=== PATIENT | female | born 1940 ===

== ENCOUNTER 2020-10-03 04:39 | Inpatient (IN) ==
[2020-10-03] MEDS ORDERED: Ondansetron 4 mg VIAL 2 MG/ML 2 ml VIAL IV ONE ×2 (05:39→10:25)
[2020-10-03] MEDS ORDERED: NS 0.9% 1000 ml BAG 1,000 ML IV ONE (05:39)
[2020-10-03 06:00] LABS: Hematocrit 37 % (35-47); Hemoglobin 12.9 g/dL (12.0-16.0); Mean Corpuscular HGB Conc 34 g/dL (31-36); Mean Corpuscular Hemoglobin 32 pg (27-31); Mean Corpuscular Volume 92 fL (80-97); Mean Platelet Volume 8.9 fL (7.4-10.4); Platelet Count 236 10^3/uL (150-450); Red Blood Count 4.07 10^6 /uL (3.70-4.87); Red Cell Distribution Width 15 % (10-15); White Blood Count 7.8 10^3/uL (3.5-10.8)
[2020-10-03 06:16] LABS: Albumin 3.6 g/dL (3.2-5.2); Albumin/Globulin Ratio 1.1 (1-3); C Reactive Protein 124.46 mg/L (<8.01); Calcium 9.4 mg/dL (8.6-10.3); EGFR African American 125.7 (>60); EGFR Non-African American 103.9 (>60); Globulin 3.2 g/dL (2-4); Potassium 3.7 mmol/L (3.5-5.0); Total Bilirubin 1.1 mg/dL (0.2-1.0); Total Protein 6.8 g/dL (6.4-8.9); Troponin I 0.01 ng/mL (<0.03)
[2020-10-03 07:15] LABS: ABS Basophils 0.1 10^3/ul (0-0.2); ABS Lymphocytes 0.4 10^3/ul (1.0-4.8); ABS Neutrophils 7.3 10^3/ul (1.5-7.7); Eosinophil % 0.2 %; Lymphocyte % 5.5 %
[2020-10-03] MEDS ORDERED: Iohexol 300 (CONTRAST) 10 ML SDV IV ONE (07:48)
[2020-10-03] MEDS ORDERED: Morphine 4 MG/ML VIAL (1 ml) IV ONE (09:12)
[2020-10-03] MEDS ORDERED: Neostigmine Methylsulfate 3 MG/3 ML SYRINGE IV ONE (11:33)
[2020-10-03] MEDS ORDERED: Atropine 1 MG/ML INJ 1 ML VIAL IV PUSH PRN (11:33)
[2020-10-03 13:03] LABS: Urine Appearance Clear; Urine Bilirubin Negative (Negative); Urine Blood Negative (Negative); Urine Color Amber; Urine Glucose Negative (Negative); Urine Ketones Trace (Negative); Urine Nitrite Negative (Negative); Urine Protein Negative (Negative); Urine Urobilinogen Positive (Negative)
[2020-10-03] MEDS ORDERED: Atropine 0.1 MG/ML 10 ml SYR (1 mg) IV PUSH PRN (13:32)
[2020-10-03] MEDS: Heparin 5000 UNITS/ML 1 mL VIAL SUBCUT SCH ×2 (13:38→22:04)
[2020-10-03 13:55] LABS: T4, Total 9.31 mcg/dL (6.09-12.23)
[2020-10-03] MEDS ORDERED: Metoclopramide 5 MG/ML VIAL (10 mg) IV PRN (13:55)
[2020-10-03 13:59] LABS: Urine Specific Gravity > 1.060 (1.002-1.030)
[2020-10-03 13:59] LABS: TSH Ultra Thyroid Stim Horm 3.22 mcIU/mL (0.34-5.60)
[2020-10-03] MEDS: Prochlorperazine 5 mg/ml 2 ml VIAL (10 mg) IV PRN (14:03)
[2020-10-03] MEDS ORDERED: D5W IV SCH (19:00)
[2020-10-03] MEDS ORDERED: LEVOTHYROXINE IV SCH (19:00)
[2020-10-04] MEDS ORDERED: Levothyroxine 100 MCG/5 ML VIAL IV SCH (06:00)
[2020-10-04 06:20] LABS: Hematocrit 35 % (35-47); Hemoglobin 11.8 g/dL (12.0-16.0); Mean Corpuscular HGB Conc 34 g/dL (31-36); Mean Corpuscular Hemoglobin 32 pg (27-31); Mean Corpuscular Volume 93 fL (80-97); Mean Platelet Volume 9.3 fL (7.4-10.4); Platelet Count 183 10^3/uL (150-450); Red Blood Count 3.72 10^6 /uL (3.70-4.87); Red Cell Distribution Width 15 % (10-15); White Blood Count 5.2 10^3/uL (3.5-10.8)
[2020-10-04] MEDS: Heparin 5000 UNITS/ML 1 mL VIAL SUBCUT SCH (06:25)
[2020-10-04 06:46] LABS: Calcium 8.8 mg/dL (8.6-10.3); EGFR African American 111.8 (>60); EGFR Non-African American 92.4 (>60); Potassium 3.5 mmol/L (3.5-5.0)
[2020-10-04] MEDS: Acetaminophen IV 1 GM/100ML 100 ML IVPB SCH ×2 (08:04→16:11)
[2020-10-04] MEDS: Enoxaparin 40 MG/0.4 ML SYR SUBCUT SCH (08:07)
[2020-10-04] MEDS: Lactated Ringers 1000 ml BAG 1,000 ML IV SCH (09:10)
[2020-10-04] MEDS: Prochlorperazine 5 mg/ml 2 ml VIAL (10 mg) IV PRN (22:16)
[2020-10-05] MEDS: Acetaminophen IV 1 GM/100ML 100 ML IVPB SCH (01:29)
[2020-10-05] MEDS: Calcium Carb (TUMS) 500 mg CHEW TAB PO PRN ×2 (01:33→06:46)
[2020-10-05] MEDS: Lactated Ringers 1000 ml BAG 1,000 ML IV SCH ×2 (03:31→16:57)
[2020-10-05 04:58] LABS: ABS Eosinophils 0.1 10^3/ul (0-0.6); ABS Lymphocytes 0.7 10^3/ul (1.0-4.8); ABS Monocytes 0.3 10^3/ul (0-0.8); ABS Neutrophils 1.4 10^3/ul (1.5-7.7); Eosinophil % 2.2 %; Hematocrit 31 % (35-47); Hemoglobin 10.7 g/dL (12.0-16.0); Lymphocyte % 27.8 %; Mean Corpuscular HGB Conc 34 g/dL (31-36); Mean Corpuscular Hemoglobin 32 pg (27-31); Mean Corpuscular Volume 93 fL (80-97); Mean Platelet Volume 8.9 fL (7.4-10.4); Nucleated Red Blood Cells % 0.2; Platelet Count 155 10^3/uL (150-450); Red Blood Count 3.36 10^6 /uL (3.70-4.87); Red Cell Distribution Width 14 % (10-15); White Blood Count 2.5 10^3/uL (3.5-10.8)
[2020-10-05 05:13] LABS: Calcium 8.9 mg/dL (8.6-10.3); EGFR African American 88.4 (>60); Magnesium 1.9 mg/dL (1.9-2.7); Potassium 3.2 mmol/L (3.5-5.0)
[2020-10-05] MEDS: Enoxaparin 40 MG/0.4 ML SYR SUBCUT SCH (07:43)
[2020-10-05] MEDS: Cholecalciferol (VIT D3) 1,000 unit TAB PO SCH (09:17)
[2020-10-05] MEDS: Aspirin EC 81 mg TAB.EC (enteric coated) PO SCH (09:17)
[2020-10-05] MEDS ORDERED: Polyethylene Glycol 3350 17 GM PACKET PO SCH (11:00)
[2020-10-05] MEDS ORDERED: PEG 3000 GI LAVAGE 1 GALLON PO ONE (16:55)
[2020-10-05] MEDS: Prochlorperazine 5 mg/ml 2 ml VIAL (10 mg) IV PRN (20:07)
[2020-10-06 06:32] LABS: ABS Eosinophils 0.2 10^3/ul (0-0.6); ABS Lymphocytes 1.1 10^3/ul (1.0-4.8); ABS Monocytes 0.6 10^3/ul (0-0.8); ABS Neutrophils 2.1 10^3/ul (1.5-7.7); Hematocrit 33 % (35-47); Hemoglobin 11.1 g/dL (12.0-16.0); Lymphocyte % 28.7 %; Mean Corpuscular HGB Conc 34 g/dL (31-36); Mean Corpuscular Hemoglobin 32 pg (27-31); Mean Corpuscular Volume 93 fL (80-97); Mean Platelet Volume 8.4 fL (7.4-10.4); Nucleated Red Blood Cells % 0.1; Platelet Count 182 10^3/uL (150-450); Red Cell Distribution Width 15 % (10-15)
[2020-10-06 06:47] LABS: Calcium 9.1 mg/dL (8.6-10.3); EGFR African American 107.8 (>60); EGFR Non-African American 89.1 (>60); Magnesium 1.5 mg/dL (1.9-2.7); Potassium 2.8 mmol/L (3.5-5.0)
[2020-10-06] MEDS: Lactated Ringers 1000 ml BAG 1,000 ML IV SCH (06:49)
[2020-10-06] MEDS: KCL 20 MEQ/100 ML IVPREMIX 20 MEQ/100 ML BAG IV SCH ×4 (07:55→16:58)
[2020-10-06] MEDS: Enoxaparin 40 MG/0.4 ML SYR SUBCUT SCH (07:56)
[2020-10-06] MEDS: Aspirin EC 81 mg TAB.EC (enteric coated) PO SCH (07:57)
[2020-10-06] MEDS: Cholecalciferol (VIT D3) 1,000 unit TAB PO SCH (07:57)
[2020-10-06] MEDS ORDERED: Magnesium Sulf 4 GM/100 ML IV 4,000 MG/100 ML BAG IVPB ONE (09:00)
[2020-10-06] MEDS ORDERED: KCL 20 MEQ/100 ML IVPREMIX 20 MEQ/100 ML BAG IV ONE (17:00)
[2020-10-07] MEDS: Lactated Ringers 1000 ml BAG 1,000 ML IV SCH (00:49)
[2020-10-07 04:29] LABS: Hematocrit 28 % (35-47); Hemoglobin 9.7 g/dL (12.0-16.0); Mean Corpuscular HGB Conc 35 g/dL (31-36); Mean Corpuscular Hemoglobin 32 pg (27-31); Mean Corpuscular Volume 92 fL (80-97); Mean Platelet Volume 8.2 fL (7.4-10.4); Platelet Count 184 10^3/uL (150-450); Red Blood Count 3.05 10^6 /uL (3.70-4.87); Red Cell Distribution Width 14 % (10-15); White Blood Count 3.4 10^3/uL (3.5-10.8)
[2020-10-07 04:44] LABS: Calcium 8.1 mg/dL (8.6-10.3); EGFR African American 146.7 (>60); EGFR Non-African American 121.2 (>60); Potassium 3.2 mmol/L (3.5-5.0)
[2020-10-07 06:13] LABS: ABS Eosinophils 0.1 10^3/ul (0-0.6); ABS Lymphocytes 1.3 10^3/ul (1.0-4.8); ABS Monocytes 0.6 10^3/ul (0-0.8); ABS Neutrophils 1.4 10^3/ul (1.5-7.7); Eosinophil % 3.4 %; Lymphocyte % 37.8 %; Nucleated Red Blood Cells % 0.2
[2020-10-07] MEDS ORDERED: KCL 20 MEQ/100 ML IVPREMIX 20 MEQ/100 ML BAG IV SCH (07:00)
[2020-10-07 08:16] LABS: Magnesium 1.9 mg/dL (1.9-2.7)
[2020-10-07] MEDS ORDERED: Potassium Chlor 20 meq TAB.ER PO ONE (08:28)
[2020-10-07] MEDS: Enoxaparin 40 MG/0.4 ML SYR SUBCUT SCH (09:24)
[2020-10-07] MEDS: Cholecalciferol (VIT D3) 1,000 unit TAB PO SCH (09:26)
[2020-10-07] MEDS: Aspirin EC 81 mg TAB.EC (enteric coated) PO SCH (09:26)
[2020-10-07] MEDS ORDERED: Polyethylene Glycol 3350 17 GM PACKET PO SCH (10:00)
[2020-10-07 15:29] VITALS: BP 104/50
== END 2020-10-07 19:05 | disposition home or self-care (01) | DRG 392 ==
LOC: ED 04:39 → ICU 11:24 → SSU 10-04 00:16
PROVIDERS: ADMIT Internal Medicine Critical Care Medicine; ATTEND Internal Medicine